=== PATIENT | female | born 1990 | race Two or more races ===

== ENCOUNTER 2018-01-31 18:03 | Emergency (ER) | payer SELFPAY ==
[2018-01-31 18:36] VITALS: BP 118/73
[2018-01-31] MEDS ORDERED: ONDANSETRON 4 MG TAB.RAPDIS PO ONE (19:16)
--- NOTE | 2018-01-31 19:17 | ER Document Report ---
ED Medical Screen (RME) - General Chief Complaint: Nausea/Vomiting Stated Complaint: NAUSEA,VOMITING,ABDOMINAL PAIN Time Seen by Provider: 01/31/18 19:16 Mode of Arrival: Ambulatory Information source: Patient Notes: 28-year-old female presents with 5 days of nausea and vomiting. Patient is unsure whether or not she could be . Last menstrual period was January 18, 2018 I have greeted and performed a rapid initial assessment of this patient. A comprehensive ED assessment and evaluation of the patient, analysis of test results and completion of medical decision making process we will be contacted by additional ED providers. PHYSICAL EXAMINATION: GENERAL: Well-appearing, well-nourished and in no acute distress. HEAD: Atraumatic, normocephalic. EYES: Pupils equal round extraocular movements intact, conjunctiva are normal. ENT: Nares patent NECK: Normal range of motion LUNGS: No respiratory distress Musculoskeletal: Normal range of motion NEUROLOGICAL: Normal speech, normal gait. PSYCH: Normal mood, normal affect. SKIN: Warm, Dry, normal turgor, no rashes or lesions noted. TRAVEL OUTSIDE OF THE [place] IN LAST 30 DAYS: No - HPI Onset: Last week Onset/Duration: Persistent Associated Symptoms: Body/muscle aches, Nausea, Vomiting Exacerbated by: Denies Relieved by: Denies Similar symptoms previously: No Recently seen / treated by doctor: No - Related Data Smoking: Non-smoker Frequency of alcohol use: None Drug Abuse: None Allergies/Adverse Reactions: No Known Allergies Allergy (Unverified 01/31/18 18:06) Past Medical History - Social History Chew tobacco use (# tins/day): No Frequency of alcohol use: None Drug Abuse: Marijuana Renal/ Medical History: Denies: Hx Peritoneal Dialysis Psychiatric Medical History: Reports: Hx Bipolar Disorder, Hx Depression - & anxiety Physical Exam - Vital signs Vitals: Temp Pulse Resp BP Pulse Ox 98.5 F 83 16 118/73 98 01/31/18 18:34 01/31/18 18:34 01/31/18 18:34 01/31/18 18:34 01/31/18 18:34 Course - Vital Signs Vital signs: Temp Pulse Resp BP Pulse Ox 98.5 F 83 16 118/73 98 01/31/18 18:34 01/31/18 18:34 01/31/18 18:34 01/31/18 18:34 01/31/18 18:34
--- NOTE | 2018-01-31 19:41 | ER Document Report ---
ED General - General Chief Complaint: Nausea/Vomiting Stated Complaint: NAUSEA,VOMITING,ABDOMINAL PAIN Time Seen by Provider: 01/31/18 19:16 Mode of Arrival: Ambulatory Notes: Patient is a 28-year-old female that presents to the emergency department for chief complaint of nausea, vomiting, body aches and fatigue. Patient states she is been having these symptoms for for 5 days now, and he got to the point where she wanted to be evaluated. She states that she might be as well. Her first day of her last menstrual period was around January 15. She denies having any sick contacts, she states she has had a cough, but denies sore throat, fevers, chills or night sweats. She overall is mostly complaining of the body aches, nausea and vomiting that she was having. Denies having any associated diarrhea. Past Medical History: Denies chronic medical conditions Past Surgical History: Denies surgical history Social History: Admits to smoking cigarettes daily, denies alcohol or drug use Family History: Reviewed and noncontributory for presenting illness Allergies: Reviewed, see documented allergy list. REVIEW OF SYSTEMS: Unless otherwise stated in this report the patient's positive and negative responses for review of systems for constitutional, eyes, ENT, cardiovascular, respiratory, gastrointestinal, neurological, genitourinary, musculoskeletal, and integumentary systems and related systems to the presenting problem are either as stated in the HPI or were not pertinent or were negative for the symptoms and/or complaints related to the presenting medical problem. PHYSICAL EXAMINATION: Vital signs reviewed, nursing noted reviewed. GENERAL: Well-appearing, well-nourished and in no acute distress. HEAD: Atraumatic, normocephalic. EYES: Eyes appear normal, extraocular movements intact, sclera anicteric, conjunctiva are normal. ENT: nares patent, oropharynx clear without exudates. Moist mucous membranes. NECK: Normal range of motion, supple without lymphadenopathy LUNGS: Breath sounds clear to auscultation bilaterally and equal. No wheezes rales or rhonchi. HEART: Regular rate and rhythm without murmurs ABDOMEN: Soft, nontender, normoactive bowel sounds. No rebound, guarding, or rigidity. No masses appreciated. EXTREMITIES: Nontender, good range of motion, no pitting or edema. NEUROLOGICAL: No focal neurological deficits. Moves all extremities spontaneously Motor and sensory grossly intact on exam. PSYCH: Normal mood, normal affect. SKIN: Warm, Dry, normal turgor, no rashes or lesions noted on exposed skin TRAVEL OUTSIDE OF THE [place] IN LAST 30 DAYS: No - Related Data Allergies/Adverse Reactions: No Known Allergies Allergy (Unverified 01/31/18 18:06) Past Medical History - General Information source: Patient - Social History Smoking Status: Current Every Day Smoker Chew tobacco use (# tins/day): No Frequency of alcohol use: None Drug Abuse: Marijuana Family History: Reviewed & Not Pertinent Patient has suicidal ideation: No Patient has homicidal ideation: No Renal/ Medical History: Denies: Hx Peritoneal Dialysis Psychiatric Medical History: Reports: Hx Bipolar Disorder, Hx Depression - & anxiety Physical Exam - Vital signs Vitals: Temp Pulse Resp BP Pulse Ox 98.5 F 83 16 118/73 98 01/31/18 18:34 10 18:34 10 18:34 01/31/18 18:34 01/31/18 18:34 Course - Re-evaluation Re-evalutation: Patient seen and examined vital signs reviewed. Laboratory data and imaging were ordered as appropriate for the patient's presenting symptoms and complaint, with consideration of any critical or life threatening conditions that may be associated with their obtained history and exam as noted above. Patient was treated with Zofran Results were reviewed when available and demonstrated UA, with trace bacteria, however the patient was asymptomatic, therefore will not treat at this time, advised if she did develop symptoms to return to the emergency department, urgent care or primary care. The patient was re-evaluated and was stable, improved, no further vomiting Evaluation was most consistent with viral syndrome, nausea and vomiting Results were discussed with the patient at this point, after careful consideration I feel that that patient can be discharged from the emergency department, the patient was educated treatments and reasons to return to the emergency department based on their presumed diagnosis as noted above, they were advised to followup with a primary care physician in 2-3 days. Patient was agreeable to plan of care. *Note is created using voice recognition software and may contain spelling, syntax or grammatical errors. Laboratory 01/31/18 19:30 Urine Color YELLOW Urine Appearance SLIGHTLY-CLOUDY Urine pH 7.0 Ur Specific [place] 1.010 Urine Protein NEGATIVE Urine Glucose (UA) NEGATIVE Urine Ketones NEGATIVE Urine Blood NEGATIVE Urine Nitrite NEGATIVE Urine Bilirubin NEGATIVE Urine Urobilinogen 2.0 H Ur Leukocyte Esterase NEGATIVE Urine WBC (Auto) 3 Urine RBC (Auto) 1 Urine Bacteria (Auto) TRACE Squamous Epi Cells Auto 13 Urine Mucus (Auto) RARE Urine Ascorbic Acid NEGATIVE Urine HCG, Qual NEGATIVE - Vital Signs Vital signs: Temp Pulse Resp BP Pulse Ox 98.5 F 83 16 118/73 98 01/31/18 18:34 01/31/18 18:34 01/31/18 18:34 01/31/18 18:34 01/31/18 18:34 - Laboratory Laboratory results interpreted by me: 01/31/18 19:30 Urine Urobilinogen 2.0 H Discharge - Discharge Clinical Impression: Viral illness Nausea and vomiting Qualifiers: Vomiting type: unspecified Vomiting Intractability: unspecified Qualified Code( s): R11.2 - Nausea with vomiting, unspecified Condition: Stable Disposition: HOME, SELF-CARE Instructions: Antinausea Medication ([facility]), Vomiting ([facility]) Additional Instructions: Please return to the emergency department if you have any worsening, or concern of your symptoms. Please return to the emergency department if you develop chest pain, difficulty breathing, severe abdominal pain, or ongoing vomiting. Please follow-up with your primary care physician in 2-3 days and any other recommended physicians. If prescribed, take all medications as directed. If you have any questions or concerns do not hesitate to return the emergency department for evaluation. Prescriptions: Ondansetron [Zofran Odt 4 mg Tablet] 1 tab PO Q8H PRN #15 tab.rapdis PRN Reason: For Nausea/Vomiting Referrals: [facility] [Provider Group] - Follow up in 3-5 days [facility] [Provider Group] - Follow up in 3-5 days
[2018-01-31 20:33] LABS: APPEARANCE,URINE SLIGHTLY-CLOUDY; BILIRUBIN,URINE NEGATIVE (NEGATIVE); COLOR,URINE YELLOW; GLUCOSE, URINE NEGATIVE (NEGATIVE); KETONES,URINE NEGATIVE (NEGATIVE); LEUKOCYTE ESTERASE,URINE NEGATIVE (NEGATIVE); NITRITE,URINE NEGATIVE (NEGATIVE); PROTEIN,URINE NEGATIVE (NEGATIVE)
== END 2018-01-31 22:25 | disposition home or self-care (01) ==
LOC: ER 18:03
DX: B34.9 Viral infection, unspecified (principal); R11.2 Nausea with vomiting, unspecified; R53.83 Other fatigue; R10.9 Unspecified abdominal pain; R05 Cough; F17.210 Nicotine dependence, cigarettes, uncomplicated; F12.10 Cannabis abuse, uncomplicated; R82.71 Bacteriuria
CPT/HCPCS: 99283; 81025; 81001; S0119

== ENCOUNTER 2018-05-29 16:29 | Emergency (ER) | payer MEDICAID ==
[2018-05-29 16:41] VITALS: BP 114/59
--- NOTE | 2018-05-29 17:35 | ER Document Report ---
HPI - HPI Time Seen by Provider: 05/29/18 17:18 Onset/Duration: Persistent Quality of pain: Achy Pain Level: 4 Context: Patient presents complaining of bilateral breast lumps for the past month with the left breast being more tender than the right. Patient states she did have some drainage from the nipple today from the right breast. Patient denies any fever. Patient does report a history of breast cancer in her paternal grandmother. Associated Symptoms: denies: Fever Exacerbated by: Denies Relieved by: Denies Similar symptoms previously: No Recently seen / treated by doctor: No - ROS ROS below otherwise negative: Yes Systems Reviewed and Negative: Yes All other systems reviewed and negative - CONSTITUTIONAL Constitutional: DENIES: Fever, Chills - EENT EENT: DENIES: Sore Throat - RESPIRATORY Respiratory: DENIES: Coughing - GASTROINTESTINAL Gastrointestinal: DENIES: Patient vomiting - REPRODUCTIVE Reproductive: DENIES: : - DERM Skin Color: Normal Skin Problems: None Past Medical History - General Information source: Patient - Social History Smoking Status: Never Smoker Frequency of alcohol use: None Drug Abuse: None Occupation: None Lives with: Family Family History: Reviewed & Not Pertinent Renal/ Medical History: Denies: Hx Peritoneal Dialysis Psychiatric Medical History: Reports: Hx Bipolar Disorder, Hx Depression - &anxiety Surgical Hx: Negative Vertical Provider Document - CONSTITUTIONAL Agree With Documented VS: Yes Exam Limitations: No Limitations General Appearance: WD/WN, No Apparent Distress - INFECTION CONTROL TRAVEL OUTSIDE OF THE [place] IN LAST 30 DAYS: No - HEENT HEENT: Atraumatic, Normocephalic - NECK Neck: Normal Inspection, Supple - RESPIRATORY Respiratory: Breath Sounds Normal, No Respiratory Distress Notes: Patient with bilateral breast tenderness with multiple palpable mobile lumps. No drainage from breast laterally. Normal shape color and contour to breast bilaterally. No palpable epitrochlear axillary supraclavicular or infraclavicular nodes. - CARDIOVASCULAR Cardiovascular: Regular Rate, Regular Rhythm Pulses: Normal: Radial - GI/ABDOMEN Gastrointestinal: Abdomen Soft - BACK Back: Normal Inspection - MUSCULOSKELETAL/EXTREMETIES Musculoskeletal/Extremeties: MAEW, FROM - NEURO Level of Consciousness: Awake, Alert, Appropriate Motor/Sensory: No Motor Deficit - DERM Integumentary: Warm, Dry Course - Re-evaluation Re-evalutation: 05/29/18 17:35 Patient with lumps to bilateral breast concerning for fibrocystic breast changes and/or cyst. No drainage noted from breast. No concern for abscess or cellulitis. Patient encouraged to follow-up with primary doctor for outpatient mammogram and/or ultrasound for further evaluation of tender lumps. Patient encouraged to avoid caffeine and breast manipulation. - Vital Signs Vital signs: Temp Pulse Resp BP Pulse Ox 99.0 F 75 18 114/59 L 99 05/29/18 16:40 05/29/18 16:40 05/29/18 16:40 05/29/18 16:40 05/29/18 16:40 Discharge - Discharge Clinical Impression: Breast lump in female Condition: Stable Disposition: HOME, SELF-CARE Instructions: Breast Lumps ([facility]) Additional Instructions: Return immediately for any new or worsening symptoms Followup with your primary care provider, call tomorrow to make a followup appointment Prescriptions: Naproxen [Naprosyn 250 Nmg Tablet] 1 tab PO BID #14 tablet Referrals: [facility] [Provider Group] - Follow up as needed
[2018-05-29] MEDS ORDERED: IBUPROFEN 800 MG TABLET PO ONE (17:37)
== END 2018-05-29 18:06 | disposition home or self-care (01) ==
LOC: ER 16:29
DX: N63.20 Unspecified lump in the left breast, unspecified quadrant (principal); N63.10 Unspecified lump in the right breast, unspecified quadrant; N64.52 Nipple discharge; N64.4 Mastodynia
CPT/HCPCS: 99283; J3490

== ENCOUNTER 2018-09-09 17:55 | Emergency (ER) | payer SELFPAY ==
--- NOTE | 2018-09-09 19:04 | ER Document Report ---
ED Medical Screen (RME) - General Chief Complaint: Urinary Problem Stated Complaint: UTI SYMPTOMS Time Seen by Provider: 09/09/18 19:03 Mode of Arrival: Ambulatory Information source: Parent Notes: Patient presents with complaints of white vaginal discharge that is runny for the past week. Patient does complain of some lower pelvic pain. Patient denies any nausea or vomiting. I have greeted and performed a rapid initial assessment of this patient. A comprehensive ED assessment and evaluation of the patient, analysis of test results and completion of the medical decision making process will be conducted by additional ED providers. TRAVEL OUTSIDE OF THE [place] IN LAST 30 DAYS: No - Related Data Allergies/Adverse Reactions: No Known Allergies Allergy (Verified 09/09/18 18:00) Past Medical History Renal/ Medical History: Denies: Hx Peritoneal Dialysis Psychiatric Medical History: Reports: Hx Bipolar Disorder, Hx Depression - &anxiety Physical Exam - Vital signs Vitals: Temp Pulse Resp BP Pulse Ox 99.6 F 85 16 120/82 100 09/09/18 18:10 09/09/18 18:10 09/09/18 18:10 09/09/18 18:10 09/09/18 18:10 - General General appearance: Appears well, Alert Notes: Lower pelvic tenderness Course - Vital Signs Vital signs: Temp Pulse Resp BP Pulse Ox 99.6 F 85 16 120/82 100 09/09/18 18:10 09/09/18 18:10 09/09/18 18:10 09/09/18 18:10 09/09/18 18:10
[2018-09-09 20:43] LABS: APPEARANCE,URINE SLIGHTLY-CLOUDY; BILIRUBIN,URINE NEGATIVE (NEGATIVE); COLOR,URINE YELLOW; GLUCOSE, URINE NEGATIVE (NEGATIVE); KETONES,URINE NEGATIVE (NEGATIVE); LEUKOCYTE ESTERASE,URINE TRACE (NEGATIVE); NITRITE,URINE NEGATIVE (NEGATIVE); PROTEIN,URINE NEGATIVE (NEGATIVE); URINE SPECIFIC GRAVITY 1.024
[2018-09-09 21:38] LABS: CHLAM PCR NOT DETECTED (NOT DETECT); GON PCR NOT DETECTED (NOT DETECT)
[2018-09-09 23:19] LABS: RBCS (WET MOUNT) NO RBCS SEEN; T.VAGINALIS (WET MOUNT) NO TRICHOMONAS SEEN; WBCS (WET MOUNT) NO WBCS SEEN; YEAST (WET MOUNT) NO YEAST SEEN
--- NOTE | 2018-09-09 23:56 | ER Document Report ---
ED General - General Chief Complaint: Urinary Problem Stated Complaint: UTI SYMPTOMS Time Seen by Provider: 09/09/18 19:03 Mode of Arrival: Ambulatory Notes: Patient is a 28-year-old female without chronic medical problems who presents with vaginal discharge. The patient reports that she noticed increased vaginal discharge and some vaginal irritation over the last 1 week. Symptoms started gradually, have been worsening since onset. No alleviating or worsening factor. States that she is concerned she may have a sexual transmitted infection or urinary tract infection. Denies history of similar symptoms in the past. Has not seen her primary care physician or [facility] regarding today's concerns. No fever or constitutional symptoms. Denies any abdominal pain. TRAVEL OUTSIDE OF THE [place] IN LAST 30 DAYS: No - Related Data Allergies/Adverse Reactions: No Known Allergies Allergy (Verified 09/09/18 18:00) Past Medical History - General Information source: Parent - Social History Smoking Status: Never Smoker Chew tobacco use (# tins/day): No Frequency of alcohol use: None Drug Abuse: Marijuana Lives with: Family Family History: Reviewed & Not Pertinent Patient has suicidal ideation: No Patient has homicidal ideation: No Renal/ Medical History: Denies: Hx Peritoneal Dialysis Psychiatric Medical History: Reports: Hx Bipolar Disorder, Hx Depression - &anxiety Review of Systems - Review of Systems Notes: Constitutional: Negative for fever. HENT: Negative for sore throat. Eyes: Negative for visual changes. Cardiovascular: Negative for chest pain. Respiratory: Negative for shortness of breath. Gastrointestinal: Negative for abdominal pain, vomiting or diarrhea. Genitourinary: Positive for vaginal discharge Musculoskeletal: Negative for back pain. Skin: Negative for rash. Neurological: Negative for headaches, weakness or numbness. 10 point ROS negative except as marked above and in HPI. Physical Exam - Vital signs Vitals: Temp Pulse Resp BP Pulse Ox 99.6 F 85 16 120/82 100 09/09/18 18:10 09/09/18 18:10 09/09/18 18:10 09/09/18 18:10 09/09/18 18:10 Interpretation: Normal Notes: PHYSICAL EXAMINATION: GENERAL: Well-appearing, well-nourished and in no acute distress. HEAD: Atraumatic, normocephalic. EYES: Pupils equal round and reactive to light, extraocular movements intact, sclera anicteric, conjunctiva are normal. ENT: nares patent, oropharynx clear without exudates. Moist mucous membranes. NECK: Normal range of motion, supple without lymphadenopathy LUNGS: Breath sounds clear to auscultation bilaterally and equal. No wheezes rales or rhonchi. HEART: Regular rate and rhythm without murmurs ABDOMEN: Soft, nontender, normoactive bowel sounds. No guarding, no rebound. No masses appreciated. : Scant vaginal discharge, no cervical motion tenderness, no adnexal tenderness. EXTREMITIES: Normal range of motion, no pitting or edema. No cyanosis. NEUROLOGICAL: No focal neurological deficits. Moves all extremities spontaneously and on command. PSYCH: Normal mood, normal affect. SKIN: Warm, Dry, normal turgor, no rashes or lesions noted. Course - Re-evaluation Re-evalutation: 09/09/18 23:55 Patient presents with concerns of 1 week of vaginal discharge as well as some mild pelvic discomfort. On pelvic examination there is scant vaginal discharge that appears physiologic. No cervical motion tenderness. No adnexal tenderness. She has no focal abdominal tenderness on exam. Urinalysis and test are both negative. Guttering committee screens negative. Wet mount negative. Do not clinically suspect pelvic inflammatory disease, tubo- ovarian abscess or any alternative life threatening pathology. Given absence of any abdominal pain on exam or by history do not suspect acute appendicitis. I explained to patient that the exact etiology of her increased discharge is uncertain but does not appear to be from a life threatening cause at this time and have advised close follow-up with [facility]. At this time will discharge with return precautions and follow-up recommendations. Verbal discharge instructions given a the bedside and opportunity for questions given. Medication warnings reviewed. Patient is in agreement with this plan and has verbalized understanding of return precautions and the need for primary care follow-up in the next 24-72 hours. - Vital Signs Vital signs: Temp Pulse Resp BP Pulse Ox 98.4 F 81 18 118/77 100 09/10/18 00:30 09/10/18 00:30 09/10/18 00:30 09/10/18 00:30 09/10/18 00:30 - Laboratory Laboratory results interpreted by me: 09/09/18 19:20 Urine Urobilinogen 2.0 H Ur Leukocyte Esterase TRACE H Urine Ascorbic Acid 40 H Discharge - Discharge Clinical Impression: Vaginal discharge, Pelvic pain Condition: Good Disposition: HOME, SELF-CARE Additional Instructions: He was seen today for vaginal discharge and some pelvic discomfort. The screening for sexual transmitted infection is all negative. You are not and you do not have a urinary tract infection. I am not certain of the exact cause of your increased vaginal discharge but does not appear to be from an acute infection. Please follow-up with your OB within the next several days. Return if you develop worsening discharge, fever greater than 100.4 F, vomiting, or any other symptoms that are worrisome to you.
[2018-09-10 00:34] VITALS: BP 118/77
== END 2018-09-10 00:28 | disposition home or self-care (01) ==
LOC: ER 17:55
DX: N89.8 Other specified noninflammatory disorders of vagina (principal); R10.2 Pelvic and perineal pain
CPT/HCPCS: 81001; 81025; 87210; 87491; 87591; 99283

== ENCOUNTER 2019-06-11 08:45 | Emergency (ER) | payer SELFPAY ==
[2019-06-11 09:43] LABS: APPEARANCE,URINE CLOUDY; BILIRUBIN,URINE NEGATIVE (NEGATIVE); GLUCOSE, URINE NEGATIVE (NEGATIVE); KETONES,URINE TRACE mg/dL (NEGATIVE); PROTEIN,URINE 100 mg/dL (NEGATIVE); URINE SPECIFIC GRAVITY 1.025
[2019-06-11 09:44] LABS: COLOR,URINE YELLOW
[2019-06-11 09:48] LABS: BACTERIA,URINE TRACE /HPF
[2019-06-11 10:06] LABS: A TYPE INFLUENZA AG NEGATIVE (NEGATIVE); B INFLUENZA AG NEGATIVE (NEGATIVE)
[2019-06-11 10:17] VITALS: BP 117/73
--- NOTE | 2019-06-11 10:20 | ER Document Report ---
HPI - HPI Time Seen by Provider: 06/11/19 09:03 Pain Level: 3 Notes: Otherwise healthy 29-year-old female presents the emergency department with chief complaint of nausea, vomiting, cough and congestion. She reports sick contacts at home. She states that she was unable to tolerate any fluids this morning. She denies any fevers. Denies any significant medical or surgical history. She is speaking in full complete sentences with no acute distress noted. - CONSTITUTIONAL Constitutional: DENIES: Fever, Chills - RESPIRATORY Respiratory: REPORTS: Coughing - REPRODUCTIVE Reproductive: DENIES: : Past Medical History - General Information source: Patient - Social History Smoking Status: Never Smoker Frequency of alcohol use: None Drug Abuse: None Family History: Reviewed & Not Pertinent Patient has suicidal ideation: No Patient has homicidal ideation: No Renal/ Medical History: Denies: Hx Peritoneal Dialysis Psychiatric Medical History: Reports: Hx Bipolar Disorder, Hx Depression - &anxiety Surgical Hx: Negative Vertical Provider Document - CONSTITUTIONAL Notes: PHYSICAL EXAMINATION: GENERAL: Well-appearing, well-nourished and in no acute distress. HEAD: Atraumatic, normocephalic. EYES: Pupils equal round and reactive to light, extraocular movements intact, conjunctiva are normal. ENT: Nares patent, oropharynx clear without exudates. Moist mucous membranes. NECK: Normal range of motion, supple without lymphadenopathy LUNGS: Breath sounds clear to auscultation bilaterally and equal. No wheezes rales or rhonchi. HEART: Regular rate and rhythm without murmurs ABDOMEN: Soft, nontender, nondistended abdomen. No guarding, no rebound. No masses appreciated. Female : deferred Musculoskeletal: Normal range of motion, no pitting or edema. No cyanosis. NEUROLOGICAL: Cranial nerves grossly intact. Normal speech, normal gait. Normal sensory, motor exams PSYCH: Normal mood, normal affect. SKIN: Warm, Dry, normal turgor, no rashes or lesions noted. - INFECTION CONTROL TRAVEL OUTSIDE OF THE [place] IN LAST 30 DAYS: No Course - Re-evaluation Re-evalutation: Patient appears well, nontoxic. Influenza negative. Urinalysis does not appear to be consistent with urinary tract infection. Patient will follow-up with [facility]. ED return precautions were discussed, patient verbalized understanding and agreement with same. - Vital Signs Vital signs: Temp Pulse Resp BP Pulse Ox 98.4 F 85 16 117/73 97 06/11/19 10:16 06/11/19 10:16 06/11/19 10:16 06/11/19 10:16 06/11/19 10:16 - Laboratory Laboratory results interpreted by me: 06/11/19 09:18 Urine Protein 100 H Urine Ketones TRACE H Urine Urobilinogen 2.0 H Discharge - Discharge Clinical Impression: Viral illness Condition: Stable Disposition: HOME, SELF-CARE Instructions: Viral Syndrome ([facility]) Additional Instructions: The influenza testing and urinalysis were unremarkable. Please continue to push fluids. You may take Tylenol for any fever or body aches. Follow-up with your [facility].
[2019-06-11] MEDS ORDERED: FLUCONAZOLE 100 MG TABLET PO ONE (10:27)
[2019-06-11] MEDS ORDERED: ONDANSETRON ODT 4 MG TAB (6 TAB/ER DISP) PO PRN (10:27)
== END 2019-06-11 10:37 | disposition home or self-care (01) ==
LOC: ER 08:45
DX: B34.9 Viral infection, unspecified (principal); R11.2 Nausea with vomiting, unspecified; R05 Cough
CPT/HCPCS: 81001; 87804; 99284

== ENCOUNTER 2019-06-12 23:14 | Emergency (ER) | payer SELFPAY ==
--- NOTE | 2019-06-12 23:27 | ER Document Report ---
ED Medical Screen (RME) - General Stated Complaint: WEAKNESS Time Seen by Provider: 06/12/19 23:25 Notes: 29-year-old female presents with generalized weakness, nausea/vomiting, chest pain for 6 days. Patient states she was seen here yesterday and states she was just "checked for the flu". Patient states she was given Zofran which has not helped with her nausea or vomiting. Patient states she is only able to keep down water and anni yamil. Lungs clear to auscultation bilaterally. Abdomen soft nontender. I have greeted and performed a rapid initial assessment of this patient. A comprehensive ED assessment and evaluation of the patient, analysis of test res ults and completion of the medical decision making process with be conducted by additional ED providers. TRAVEL OUTSIDE OF THE [place] IN LAST 30 DAYS: No - Related Data Allergies/Adverse Reactions: No Known Allergies Allergy (Verified 09/09/18 18:00) Past Medical History Renal/ Medical History: Denies: Hx Peritoneal Dialysis Psychiatric Medical History: Reports: Hx Bipolar Disorder, Hx Depression - &anxiety
[2019-06-12 23:45] LABS: ABSOLUTE MONOCYTES (AUTO) 0.5 10^3/uL (0.1-1.4); ABSOLUTE NEUT (AUTO) 2.9 10^3/uL (1.7-8.2); BASOPHILS % (AUTO) 0.7 % (0-2); EOSINOPHILS % (AUTO) 0.1 % (0-6); HEMATOCRIT 40.7 % (36.0-47.0); HEMOGLOBIN 13.7 g/dL (12.0-15.5); LYMPHOCYTES % (AUTO) 22.5 % (13-45); MEAN CORPUSCULAR HEMOGLOBIN 30.6 pg (27.0-33.4); MEAN CORPUSCULAR HGB CONC 33.7 g/dL (32.0-36.0); MEAN CORPUSCULAR VOLUME 91 fl (80-97); RED BLOOD COUNT 4.48 10^6/uL (3.72-5.28); RED CELL DISTRIBUTION WIDTH 13.1 % (11.5-14.0); SEGMENTED NEUTROPHILS % (AUTO) 64.7 % (42-78); TOTAL CELLS COUNTED % (AUTO) 100 %; WHITE BLOOD COUNT 4.4 10^3/uL (4.0-10.5)
[2019-06-13 00:02] LABS: ALBUMIN 3.9 g/dL (3.5-5.0); ALKALINE PHOSPHATASE 39 U/L (38-126); ANION GAP 11 (5-19); ASPARTATE AMINO TRANSFERASE 49 U/L (14-36); BILIRUBIN,DIRECT 0.2 mg/dL (0.0-0.4); BILIRUBIN,TOTAL 0.6 mg/dL (0.2-1.3); BLOOD UREA NITROGEN 14 mg/dL (7-20); CALCIUM 8.4 mg/dL (8.4-10.2); CARBON DIOXIDE 26 mmol/L (22-30); CHLORIDE 98 mmol/L (98-107); GLUCOSE 74 mg/dL (75-110); PLATELET COUNT 80 10^3/uL (150-450); POTASSIUM 3.4 mmol/L (3.6-5.0); TOTAL PROTEIN 7.1 g/dL (6.3-8.2)
--- NOTE | 2019-06-13 00:03 | RADIOLOGY REPORT (SQ) ---
EXAM DESCRIPTION: XR CHEST 2 VIEWS COMPLETED DATE/TME: 06/12/2019 23:27 CLINICAL HISTORY: 29 years, Female, chest pain COMPARISON: None. NUMBER OF VIEWS: Two TECHNIQUE: Frontal and lateral radiograph were obtained LIMITATIONS: None. FINDINGS: Cardiac and mediastinal contours are normal. Lungs are clear. No pleural effusion or pneumothorax. IMPRESSION: No acute disease. copyright 2010 [employer]- All Rights Reserved
[2019-06-13 01:14] LABS: APPEARANCE,URINE SLIGHTLY-CLOUDY; BILIRUBIN,URINE NEGATIVE (NEGATIVE); COLOR,URINE YELLOW; GLUCOSE, URINE NEGATIVE (NEGATIVE); KETONES,URINE 80 mg/dL (NEGATIVE); PROTEIN,URINE NEGATIVE (NEGATIVE); URINE SPECIFIC GRAVITY 1.014
[2019-06-13 01:45] LABS: URINE AMPHETAMINES SCREEN NEGATIVE; URINE BARBITURATES SCREEN NEGATIVE; URINE BENZODIAZEPINES SCREEN NEGATIVE; URINE COCAINE SCREEN NEGATIVE; URINE METHADONE SCREEN NEGATIVE; URINE PHENCYCLIDINE SCREEN NEGATIVE
--- NOTE | 2019-06-13 01:45 | ER Document Report ---
HPI - HPI Time Seen by Provider: 06/12/19 23:25 Pain Level: 5 Notes: Patient is a 29-year-old female with no significant past medical history who presents complaining of having nasal congestion/discharge, dry cough, occasional nausea/vomiting for the past 6 days. Pt states that she did have some CP (burning) but is primarily associated with coughing and vomiting and not at rest. She was evaluated yesterday and had an unremarkable urine and influenza test. Patient states that she came for reevaluation. She is otherwise able to eat and drink, but does have decreased p.o. intake. She is urinating normally and having normal bowel movements. Denies drug allergies. Denies any headache, fever, neck pain, sore throat, chest pain, palpitations, syncope, shortness of breath, wheeze, dyspnea, abdominal pain, urinary retention, dysuria, hematuria, or rash. - ROS Systems Reviewed and Negative: Yes All other systems reviewed and negative - CARDIOVASCULAR Cardiovascular: REPORTS: Chest pain - RESPIRATORY Respiratory: REPORTS: Coughing - REPRODUCTIVE Reproductive: DENIES: : Past Medical History - Social History Smoking Status: Former Smoker Family History: Reviewed & Not Pertinent Patient has suicidal ideation: No Patient has homicidal ideation: No Renal/ Medical History: Denies: Hx Peritoneal Dialysis Psychiatric Medical History: Reports: Hx Bipolar Disorder, Hx Depression - &anxiety Vertical Provider Document - CONSTITUTIONAL Agree With Documented VS: Yes Notes: PHYSICAL EXAMINATION: GENERAL: Well-appearing, well-nourished and in no acute distress. A&Ox4. Answers questions appropriately. Moves comfortably w/o notable distress HEAD: Atraumatic, normocephalic. EYES: Pupils equal round and reactive to light, extraocular movements intact, sclera anicteric, conjunctiva are normal. ENT: EAC clear b/l. TM's intact b/l without erythema, fluid, or perforation. Nares patent and with clear discharge. oropharynx no erythema without exudates. No tonsilar hypertrophy without erythema or exudate. No palatine shift. Uvula midline. No tongue protrusion. No drooling, hoarseness, or airway compromise. Moist mucous membranes. No sinus tenderness. NECK: Normal range of motion, supple without lymphadenopathy. No rigidity/meningismus. LUNGS: Breath sounds clear to auscultation bilaterally and equal. No wheezes rales or rhonchi. No retractions HEART: Regular rate and rhythm without murmurs, rubs, gallops. ABDOMEN: Soft, nontender, nondistended abdomen. No guarding, no rebound. Normal bowel sounds present. No CVA tenderness bilaterally. Extremities: No edema. No lower extremity asymmetry. Alis negative bilaterally. NEUROLOGICAL: Normal speech, normal gait. PSYCH: Normal mood, normal affect. SKIN: Warm, Dry, normal turgor, no rashes or lesions noted. - INFECTION CONTROL TRAVEL OUTSIDE OF THE [place] IN LAST 30 DAYS: No Course - Re-evaluation Re-evalutation: 06/13/19 02:33 Patient is an afebrile, well-hydrated, 29-year-old female who presents to the emergency department with an acute URI/n-v, suspect viral. Vitals are acceptable without significant tachycardia, tachypnea, or hypoxia. PE is otherwise unremarkable. She is nontoxic-appearing and is tolerating p.o. without difficulty. Lungs are clear to auscultation bilaterally. Labs, EKG, and imaging unremarkable. No further labs or imaging warranted at this time. Pt has a heart score of 0 and is PERC/Wells negative. Low suspicion for any meningitis, sepsis, peritonsillar/pharyngeal abscess, respiratory compromise, ACS, PE, pneumothorax, pericarditis, dissection, esophageal rupture, or other emergent systemic condition at this time. Patient is aware this condition can change from initial presentation and she needs to monitor symptoms closely. Conservative measures otherwise for symptoms. Recheck with your PCM in 2-3 days. Return to the ED with any worsening/concerning symptoms otherwise as reviewed in discharge. Patient is in agreement. - Vital Signs Vital signs: Temp Pulse Resp BP Pulse Ox 99.3 F 81 16 118/81 100 06/12/19 23:26 06/12/19 23:26 06/12/19 23:26 06/12/19 23:26 06/12/19 23:26 - Laboratory Result Diagrams: 06/12/19 23:30 06/12/19 23:30 Laboratory results interpreted by me: 06/12/19 06/12/19 06/13/19 23:30 23:30 00:53 Plt Count 80 L Sodium 134.6 L Potassium 3.4 L Glucose 74 L AST 49 H Urine Ketones 80 H Urine Urobilinogen 4.0 H Discharge - Discharge Clinical Impression: Acute URI, Viral syndrome Condition: Stable Disposition: HOME, SELF-CARE Instructions: Upper Respiratory Illness ([facility]) Additional Instructions: Maintain adequate fluid intake tylenol/ibuprofen as needed alternating every 3 hours for fever/body ache over the counter cold medication as needed for symptoms Humidified air may help Wash your hands regularly Wear a mask when coughing F/u: with your PCM in 3-5 days for a recheck Return to the ED with any fever, altered mental status/behavior, chest pain, palpitations, syncope, headache, neck pain/stiffness, shortness of breath, chest pains, wheezing, drooling, trouble swallowing/breathing, abdominal pain, n/v/d, rash, or worsening/concerning symptoms otherwise. Prescriptions: Metoclopramide HCl [Reglan] 10 mg PO BID PRN #10 tablet PRN Reason: Referrals: [facility] [Provider Group] - Follow up as needed
[2019-06-13 01:46] LABS: URINE MARIJUANA (THC) SCREEN UNCONFIRMED POSITIVE
[2019-06-13 01:56] VITALS: BP 108/70
--- NOTE | 2019-06-13 07:17 | EKG REPORT ---
SEVERITY:- NORMAL ECG - SINUS RHYTHM : Confirmed by: Richy Jones MD 13-Jun-2019 07:16:49
== END 2019-06-13 02:04 | disposition home or self-care (01) ==
LOC: ER 23:14
DX: J06.9 Acute upper respiratory infection, unspecified (principal); B34.9 Viral infection, unspecified; R53.1 Weakness; R11.2 Nausea with vomiting, unspecified; R07.9 Chest pain, unspecified
CPT/HCPCS: 36415; 71046; 80053; 80307; 81001; 83690; 84484; 84703; 85025; 93005; 93010